=== PATIENT | male | born 1940 | race Caucasian/White ===

== ENCOUNTER 2017-09-25 06:21 | Emergency (ER) | payer OTHER ==
[~2017-09-25] VITALS: Ht 180.3 cm; Wt 81.6 kg
[~2017-09-25 06:21] MED LIST: ASA81 MG; METFORMIN HCL500 M1; SIMVASTATIN20 MG; SYNTHROID137 MCG
== END 2017-09-25 12:01 | disposition home or self-care (01) ==
LOC: ER 06:21
DX: J11.1 Influenza due to unidentified influenza virus with other respiratory manifestations (principal); B34.9 Viral infection, unspecified

== ENCOUNTER 2018-02-05 19:51 | Emergency (ER) | payer OTHER ==
[~2018-02-05] VITALS: Ht 177.8 cm; Wt 79.4 kg
== END 2018-02-05 22:37 | disposition home or self-care (01) ==
LOC: ER 19:51
DX: S61.452A Open bite of left hand, initial encounter (principal); S61.451A Open bite of right hand, initial encounter; L03.114 Cellulitis of left upper limb; L03.113 Cellulitis of right upper limb; W54.0XXA Bitten by dog, initial encounter; Y93.89 Activity, other specified; Y92.018 Other place in single-family (private) house as the place of occurrence of the external cause; Y99.8 Other external cause status

== ENCOUNTER → 2018-02-10 | Emergency (ER) | payer OTHER | END | disposition left against medical advice (07) | LOC: ER 20:16 | DX: Z53.20 Procedure and treatment not carried out because of patient's decision for unspecified reasons (principal) ==

== ENCOUNTER 2022-02-27 22:03 | Emergency (ER) | payer OTHER ==
[~2022-02-27] VITALS: Ht 177.8 cm; Wt 77.1 kg
== END 2022-02-28 00:09 | disposition home or self-care (01) ==
LOC: ER 22:03
DX: B30.3 Acute epidemic hemorrhagic conjunctivitis (enteroviral) (principal)